=== PATIENT | male | born 1995 | race Caucasian/White ===

== ENCOUNTER 2018-12-15 02:28 | Observation (INO) | payer BC, OTHER ==
[2018-12-15] VITALS (7 sets, daily range): BP systolic 118–137; BP diastolic 62–80
[~2018-12-15] VITALS: Ht 175.3 cm; Wt 69.0 kg
[2018-12-15] MEDS ORDERED: LACTATED RINGERS 1,000 ML IV STA (02:40)
[2018-12-15 02:49] LABS: BASOPHILS % (AUTO) 0 % (0-10); EOSINOPHILS # (AUTO) 0.1 10^3/uL (0.0-0.3); EOSINOPHILS % (AUTO) 1 % (0-10); HEMATOCRIT 42 % (40-54); HEMOGLOBIN 14.9 G/DL (13.3-17.7); LYMPHOCYTES # (AUTO) 2.4 X 10^3 (1.0-4.0); LYMPHOCYTES % (AUTO) 31 % (12-44); MEAN CORPUSCULAR HEMOGLOBIN 29 PG (25-34); MEAN CORPUSCULAR HGB CONC 35 G/DL (32-36); MEAN CORPUSCULAR VOLUME 83 FL (80-99); MEAN PLATELET VOLUME 9.1 FL (7.4-10.4); MONOCYTES # (AUTO) 0.4 X 10^3 (0.0-1.0); MONOCYTES % (AUTO) 5 % (0-12); NEUTROPHILS # (AUTO) 4.8 X 10^3 (1.8-7.8); NEUTROPHILS % (AUTO) 63 % (42-75); PLATELET COUNT 272 10^3/uL (130-400); RED CELL DISTRIBUTION WIDTH 13.7 % (10.0-14.5); WHITE BLOOD COUNT 7.7 10^3/uL (4.3-11.0)
[2018-12-15 03:27] LABS: ALANINE AMINOTRANSFERASE 18 U/L (0-55); ALBUMIN 4.5 GM/DL (3.2-4.5); ALKALINE PHOSPHATASE 75 U/L (40-136); BILIRUBIN,TOTAL 0.4 MG/DL (0.1-1.0); BUN/CREATININE RATIO 16; CALCIUM 8.4 MG/DL (8.5-10.1); CARBON DIOXIDE 20 MMOL/L (21-32); CHLORIDE 106 MMOL/L (98-107); CREATININE SERUM 0.81 MG/DL (0.60-1.30); GFR ESTIMATED > 60; GLUCOSE 135 MG/DL (70-105); POTASSIUM 3.3 MMOL/L (3.6-5.0); SALICYLATE < 5.0 MG/DL (5.0-20.0); SODIUM 141 MMOL/L (135-145); TOTAL PROTEIN 6.9 GM/DL (6.4-8.2)
[2018-12-15 03:30] LABS: ACETAMINOPHEN < 10 UG/ML (10-30)
[2018-12-15] MEDS ORDERED: TETANUS,DIPTH,PERTUSS P/F (BOOSTRIX) 0.5 ML VIAL IM ONE (04:00)
[2018-12-15] MEDS ORDERED: LIDOCAINE 1% INJ 20 ML 20 ML VIAL INJ ONE (04:00)
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
[2018-12-15] MEDS ORDERED: cefTRIAXone FOR IV USE 1,000 MG in WATER (STERILE) FOR INJECTION 10 ML IV ONE (05:45)
[2018-12-15 05:47] LABS: AMPHETAMINE SCREEN, URINE NEGATIVE (NEGATIVE); BARBITURATE SCREEN URINE NEGATIVE (NEGATIVE); BENZODIAZEPINES SCREEN URINE NEGATIVE (NEGATIVE); CANNABINOID SCREEN, URINE NEGATIVE (NEGATIVE); COCAINE SCREEN URINE NEGATIVE (NEGATIVE); METHADONE STAT NEGATIVE (NEGATIVE); METHAMPHETAMINE SCREEN URINE S NEGATIVE (NEGATIVE); OPIATE SCREEN URINE NEGATIVE (NEGATIVE); OXYCODONE STAT NEGATIVE (NEGATIVE); PROPOXYPHENE STAT NEGATIVE (NEGATIVE); TRICYCLIC ANTIDEPRESSANTS SCRE NEGATIVE (NEGATIVE)
[2018-12-15 05:48] LABS: BILIRUBIN,URINE NEGATIVE (NEGATIVE); CLARITY,URINE CLEAR; COLOR,URINE YELLOW; GLUCOSE, URINE (UA) NEGATIVE (NEGATIVE); KETONES,URINE NEGATIVE (NEGATIVE); NITRITE,URINE NEGATIVE (NEGATIVE); PH,URINE 6 (5-9); PROTEIN,URINE NEGATIVE (NEGATIVE); UROBILINOGEN,URINE NORMAL (NORMAL)
[2018-12-15 05:49] LABS: BACTERIA,URINE TRACE /HPF; LEUKOCYTE ESTERASE ,URINE NEGATIVE (NEGATIVE); SQUAMOUS EPITHELIAL CELL,UR RARE /HPF
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
[2018-12-15] MEDS ORDERED: ONDANSETRON 4 MG/2 ML (SDV) Z0FRAN IV PRN (07:15)
[2018-12-15] MEDS ORDERED: ACETAMINOPHEN 500 MG TAB (TYLENOL) PO PRN (07:15)
[2018-12-15] MEDS ORDERED: NS IV 1000 ML 1,000 ML IV SCH (07:15)
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
[2018-12-15] MEDS ORDERED: HYDROcodone/APAP 7.5 MG/325 MG (LORTAB, LORCET PLUS) TABLET PO PRN (10:45)
[2018-12-15] MEDS ORDERED: HYDR-3816 PO (10:48)
[2018-12-15] MEDS ORDERED: CEPH-507 PO (10:48)
--- NOTE | 2018-12-15 10:50 | Discharge Inst-Surgical ---
D/C Lap Instructions-KIDO Reconcile Patient Problems Problems Reviewed?: Yes New, Converted, or Re-Newed RX: RX on Chart Follow Up Appt in 1 week Activity as tolerated No driving while on pain medications Regular Diet Symptoms to Report: Fever over 101 degree F, Nausea/Vomiting Infection Signs and Symptoms to report: Increased redness, Foul odor of wound, Increased drainage Bathing instructions: May shower Operative Area Clean/Dry; Keep incision clean/dry If any problems/questions: Contact your physician or go to Emergency Room MAC SOTO APRN Dec 15, 2018 10:50
[2018-12-15] MEDS ORDERED: fentaNYL INJECTION 100 MCG/2 ML AMP IVP ONE (12:00)
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
--- NOTE | 2018-12-15 14:00 | NUR ---
PREMEDICATED WITH FENTANYL 50MCG, ABRASIONS AND LACERATION CLEANED WITH SALINE AND LEFT OPEN TO AIR, ICE PACKS CONTINUED.
--- NOTE | 2018-12-15 14:15 | NUR ---
LEFT ARM SLING APPLIED ORDERED BY DR JEREZ
[2018-12-15] MEDS ORDERED: ONDANSETRON 4 MG/2 ML (SDV) Z0FRAN IVP ONE (15:00)
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
--- NOTE | 2018-12-15 16:30 | NUR ---
IV REMOVED, DISCHARGE INSTRUCTIONS GIVEN, VERBALIZED UNDERSTANDING, PRESCRIPTIONS GIVEN TO FAMILY.
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
== END 2018-12-15 15:20 | disposition home or self-care (01) ==
LOC: ER 02:37 → 4TH 05:36 → UNDOADMOB 05:36 → 4TH 06:55 → UNDODISOB 16:35
PROVIDERS: ADMIT Surgery; ATTEND Surgery
DX: S06.9X9A Unspecified intracranial injury with loss of consciousness of unspecified duration, initial encounter (principal); S01.312A Laceration without foreign body of left ear, initial encounter; J45.909 Unspecified asthma, uncomplicated; F10.920 Alcohol use, unspecified with intoxication, uncomplicated; Z90.49 Acquired absence of other specified parts of digestive tract
CPT/HCPCS: 12032; 36415; 70450; 70486; 72125; 73030; 73060; 80053; 80306; 80320; 80329; 81000; 85025; 90471; 90715; 96361; 96365; G0378